=== PATIENT | female | born 2000 ===

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

== ENCOUNTER 2021-01-19 00:03 | Inpatient (IN) ==
[2021-01-19] MEDS ORDERED: MEPERIDINE 50 MG/1 ML VIAL IV PRN (01:06)
[2021-01-19] MEDS ORDERED: ONDANSETRON 4 MG/2 ML VIAL IV PRN ×2 (01:06→21:01)
[2021-01-19] MEDS ORDERED: BUTORPHANOL 2 MG/ML VIAL IV PRN (01:06)
[2021-01-19] MEDS ORDERED: ACETAMINOPHEN 500 MG TABLET PO PRN (01:25)
[2021-01-19 01:52] LABS: Basophils % 0.3 % (0.0-0.8); Eosinophils # 0.2 10*3/uL (0.0-0.87); Eosinophils % 2.5 % (0.00-10.9); Hematocrit 26.8 VOL% (35.7-47.0); Hemoglobin 8.3 GM/DL (12.0-16.0); Immature Granulocytes % 0.9 %; Immature Granulocytes Absolute 0.07 #; Lymphocytes # 1.4 10*3/uL (1.4-4.0); Lymphocytes % 18.7 % (21.3-54.2); Mean Corpuscular Volume 81.7 FL (87-102); Mean Platelet Volume 11.9 FL (9.6-12.0); Monocytes % 5.6 % (1.7-12.7); NRBC # 0.02 10*3/uL; Platelet Count 221 T/CUMM (130-400); Red Blood Count 3.28 MC/CUMM (3.8-5.5); Red Cell Distribution Width 16.4 % (9.3-17.3); White Blood Count 7.5 T/CUMM (4-12)
[2021-01-19 02:16] LABS: Alanine Aminotransferase 10 U/L (13-56); Alkaline Phosphatase 170 U/L (45-117); Aspartate Amino Transferase 18 U/L (0-37); Bilirubin,Total < 0.39 MG/DL (0.20-1.00); Blood Urea Nitrogen 16 MG/DL (7-18); Calcium 8.2 MG/DL (8.5-10.1); Carbon Dioxide 22 MMOL/L (21-32); Estimated Glom Filtration Rate 133 ML/MIN; Glucose 98 MG/DL (74-106); Osmolality,Calculated 279.4 MOS/KG (273-304); Potassium 3.5 MMOL/L (3.5-5.1); Sodium 140 MMOL/L (136-145); Total Protein 6.3 G/DL (6.4-8.2)
[2021-01-19] MEDS: LACTATED RINGERS 1,000 ML IV SCH ×2 (05:50→19:40)
[2021-01-19] MEDS ORDERED: OXYTOCIN/LR 20 UNIT/1,000 ML BAG IV SCH (09:30)
[2021-01-19] MEDS: CLINDAMYCIN INJ 900 MG/50 ML PREMIX IV SCH ×2 (10:20→18:07)
[2021-01-19] MEDS ORDERED: NIFEdipine 10 MG CAPSULE PO ONE (10:46)
[2021-01-19 12:31] LABS: INR 0.9; PT Patient Result 10.3 SECS (10.5-12.0); Partial Thromboplastin Time 28.7 SECS (23.9-33.8)
[2021-01-19] MEDS ORDERED: PROMETHAZINE 25 MG/1 ML VIAL IM ONE (12:58)
[2021-01-19] MEDS ORDERED: diphenhydrAMINE 50 MG/1 ML VIAL IV PRN ×2 (12:58)
[2021-01-19] MEDS ORDERED: FAMOTIDINE 20 MG/2 ML VIAL IV ONE (12:58)
[2021-01-19] MEDS ORDERED: CITRIC ACID/SODIUM CITRATE 30 ML UDCUP PO ONE (12:58)
[2021-01-19] MEDS ORDERED: NALOXONE 0.4 MG/ML VIAL IV PRN (12:58)
[2021-01-19] MEDS ORDERED: ePHEDrine 50 MG/ML VIAL IV PRN (12:58)
[2021-01-19] MEDS ORDERED: hydrOXYzine HCL 25 MG/1 ML VIAL IM PRN (12:58)
[2021-01-19] MEDS ORDERED: ONDANSETRON 4 MG/2 ML VIAL IV ONE (12:58)
[2021-01-19] MEDS: fentaNYL 2 MCG/ROPIV 0.2% EPID 100 ML EPIDURAL SCH ×2 (14:15→18:19)
[2021-01-19 17:08] LABS: Bacteria,Urine Occasional /HPF (Few); Bilirubin,Urine Negative (Negative); Blood, Urine Negative (Negative); Glucose,Urine (UA) Negative (Negative); Hyaline Casts,Urine 1 /LPF (0-3); Ketones,Urine Negative (Negative); Mucus,Urine Occasional /LPF (Occasional); Nitrite,Urine Negative (Negative); Protein,Urine 100 MG/DL; RBC,Urine <1 /HPF (0-4); Squamous Epithelial Cell,Urine Occasional /HPF (0-10); Urine Appearance CLEAR (Clear); Urine Color Yellow (Yellow); Urine Specific Gravity 1.018 (1.001-1.035); Urine Urobilinogen < 2.0 EU/DL (0.2-1.0)
[2021-01-19] MEDS ORDERED: CLINDAMYCIN INJ 900 MG/50 ML PREMIX IV ONE (19:00)
[2021-01-19] MEDS ORDERED: OXYTOCIN 10 UNIT/ML VIAL IM ONE (19:09)
[2021-01-19] MEDS ORDERED: METHYLERGONOVINE 0.2 MG/1 ML AMP ONE (19:13)
[2021-01-19] MEDS ORDERED: OXYTOCIN/LR 20 UNIT/1,000 ML BAG IV ONE ×2 (19:13→21:01)
[2021-01-19] MEDS ORDERED: TRANEXAMIC ACID 1,000 MG/10 ML VIAL ONE (19:13)
[2021-01-19] MEDS ORDERED: CARBOPROST TROMETHAMINE 250 MCG/ML AMP IM ONE (19:13)
[2021-01-19] MEDS ORDERED: miSOPROStoL 200 MCG TABLET ONE (19:13)
[2021-01-19] MEDS ORDERED: OXYTOCIN/LR 30 UNIT/1,000 ML BAG IV ONE (19:30)
[2021-01-19] MEDS ORDERED: fentaNYL 100 MCG/2 ML VIAL ONE (20:34)
[2021-01-19 20:45] LABS: Cord Venous Blood HCO3 22.5 MMOL/L; Cord Venous Blood PCO2 43.2 MMHG; Cord Venous Blood PO2 39.3
[2021-01-19] MEDS ORDERED: LIDOCAINE MPF 2% /EPI 20 ML VIAL ONE (20:46)
[2021-01-19] MEDS ORDERED: ACETAMINOPHEN INJ 1,000 MG/100 ML VIAL IV ONE (20:46)
[2021-01-19] MEDS ORDERED: ONDANSETRON 4 MG/2 ML VIAL ONE (20:46)
[2021-01-19] MEDS ORDERED: ACETAMINOPHEN 325 MG TABLET PO PRN (21:01)
[2021-01-19] MEDS ORDERED: RHO(D) IMMUNE GLOBULIN 300 MCG SYRINGE IM ONE ×2 (21:01→21:30)
[2021-01-19] MEDS ORDERED: SIMETHICONE CHEW 80 MG TABLET PO PRN (21:01)
[2021-01-19] MEDS ORDERED: LACTATED RINGERS 1,000 ML IV SCH (21:30)
[2021-01-20] MEDS: CLINDAMYCIN INJ 900 MG/50 ML PREMIX IV SCH ×2 (02:28→09:56)
[2021-01-20] MEDS: IBUPROFEN 800 MG TABLET PO PRN (02:30)
[2021-01-20] MEDS ORDERED: CLINDAMYCIN INJ 900 MG/50 ML PREMIX IV SCH (03:30)
[2021-01-20 04:11] LABS: Hematocrit 25.6 VOL% (35.7-47.0); Hemoglobin 7.9 GM/DL (12.0-16.0)
[2021-01-20] MEDS ORDERED: SODIUM CHLORIDE 0.9% 1,000 ML IV PRN ×5 (06:54→09:13)
[2021-01-20] MEDS: DOCUSATE SODIUM 100 MG CAPSULE PO SCH ×2 (08:58→21:22)
[2021-01-20] MEDS: MULTIVITAMIN (PRENATAL) TABLET PO SCH (08:58)
[2021-01-20] MEDS: MAGNESIUM HYDROXIDE SUSP 30 ML UDCUP PO PRN (16:36)
[2021-01-20] MEDS: METOCLOPRAMIDE 10 MG TABLET PO SCH (16:36)
[2021-01-20] MEDS: FERROUS SULFATE 325 MG TABLET PO SCH (21:22)
[2021-01-21] MEDS: METOCLOPRAMIDE 10 MG TABLET PO SCH ×2 (01:33→09:00)
[2021-01-21] MEDS: IBUPROFEN 800 MG TABLET PO PRN ×2 (01:34→09:00)
[2021-01-21 06:23] LABS: Basophils % 0.2 % (0.0-0.8); Eosinophils # 0.2 10*3/uL (0.0-0.87); Eosinophils % 1.4 % (0.00-10.9); Hematocrit 25.3 VOL% (35.7-47.0); Hemoglobin 7.8 GM/DL (12.0-16.0); Immature Granulocytes Absolute 0.11 #; Lymphocytes # 1.5 10*3/uL (1.4-4.0); Lymphocytes % 13.8 % (21.3-54.2); Mean Corpuscular HGB Conc 30.8 GM/DL (32-36); Mean Corpuscular Volume 84.3 FL (87-102); Mean Platelet Volume 11.9 FL (9.6-12.0); Monocytes % 6.2 % (1.7-12.7); NRBC # 0.02 10*3/uL; Neutrophils % 77.4 % (38.7-73.9); Platelet Count 192 T/CUMM (130-400); Red Cell Distribution Width 16.9 % (9.3-17.3); White Blood Count 10.6 T/CUMM (4-12)
[2021-01-21] MEDS: FERROUS SULFATE 325 MG TABLET PO SCH (08:31)
[2021-01-21] MEDS: DOCUSATE SODIUM 100 MG CAPSULE PO SCH (08:31)
[2021-01-21] MEDS: MULTIVITAMIN (PRENATAL) TABLET PO SCH (08:31)
[2021-01-21] MEDS: MAGNESIUM HYDROXIDE SUSP 30 ML UDCUP PO PRN (08:31)
[2021-01-21 09:54] VITALS: BP 110/62
[2021-01-21] MEDS ORDERED: DIPH/TET/ACEL PERT BOOSTER VACCINE 0.5 ML VIAL IM ONE (12:08)
== END 2021-01-21 13:05 | disposition home or self-care (01) | DRG 540 ==
LOC: N.LD 00:03 → N.OB 01-20 13:06
PROVIDERS: ADMIT Obstetrics & Gynecology; ATTEND Obstetrics & Gynecology
PROC: LDCSECT (ICD-10-PCS; 2021-01-19 20:08)